=== PATIENT | male | born 1965 | race Caucasian/White ===

== ENCOUNTER 2023-01-14 17:54 | Emergency (ER) | payer OTHER ==
[2023-01-14] MEDS ORDERED: Lidocaine 1% 5 ML VIAL INJECT ONE (18:50)
[2023-01-14] MEDS ORDERED: Bacitracin Oint 1 GM U/D Packet TOP ONE (18:50)
[2023-01-14] MEDS ORDERED: Diphtheria,Pertussis(Acell),Tetanus Vaccine 0.5 ML Syringe IM ONE (18:50)
== END 2023-01-14 19:40 | disposition home or self-care (01) ==
LOC: JP.ED 17:54
DX: S61.216A Laceration without foreign body of right little finger without damage to nail, initial encounter (principal); Z23 Encounter for immunization; W26.8XXA Contact with other sharp object(s), not elsewhere classified, initial encounter; Y93.11 Activity, swimming
CPT/HCPCS: 12002; 90471; 90715; 99282; 99282-25